=== PATIENT | male | born 1950 | race Caucasian/White ===

== ENCOUNTER 2017-02-26 13:10 | Observation (INO) | payer MEDICARE ==
--- NOTE | ~2017-02-26 | HP ---
History And Physical [place] [id number] [place]. [address] NAME: SHERIDAN JACOBSEN : 48 STATUS : ADM Fawad PAT#: [id number] AGE: 66 ADM/REG DATE : 02/26/17 MR#: [id number] REPORT SERV DATE: 02/27/17 DICTATED BY: ASHWINI SALOMON DATE: 02/27/17 REPORT STATUS : Draft TRANSCRIBED BY: MODRenetta DATE: 02/27/17 DATE OF ADMISSION: 02/26/2017 PRINT SHOP HELPER: Mars Carter M.D. GI PHYSICIAN: Dr. Medina. CHIEF COMPLAINT: Two to three days of chest pain similar to previous. HISTORY OF PRESENT ILLNESS: A very pleasant 66-year-old white gentleman with known history of CAD, status post KARLIE to mid LAD, 05/2011 with cath 05/2012 revealing a widely patent stent to his LAD with mild CAD otherwise. The patient states that for the last two to three days, he has experienced relatively persistent chest discomfort similar to his previous cardiac events. He describes it as some left-sided anterior chest pain, but also he describes some stomach "rumbling as well". He describes the discomfort as sharp in nature. He rates the chest pain of 4/10 at its most intense. At the time of interview in the [facility], he rates it as 1/10 after having received morphine. He also describes the chest pain as "persistent and aggravating". He describes associated nausea, dizziness, and belching. Denies shortness of breath or diaphoresis. The episode lasted hours in duration. He did take aspirin and possibly old nitroglycerin with some improvement in his symptoms. There seemingly no pattern with meals, although he does report some difficulty swallowing certain foods at times. The discomfort has been persistent. There seems to be no aggravating or exertional component described. He reports no change in his activity. The patient denies any personal history of myocardial infarction, stroke, DVT, or pulmonary embolus. The patient denies any recent fever or chills, no palpitations, no syncopal episodes. Denies PND or orthopnea. PAST MEDICAL HISTORY: 1. CAD;. a. 05/2011, KARLIE to the mid LAD. b. 05/2012, cath by Dr. Carter, widely patent stent to the LAD with mild CAD otherwise, EF 55% to 60%. 2. Hypertension. 3. Dyslipidemia. 4. AODM. 5. Depression. 6. Arthritis. 7. Forgetfulness. 8. Remote tobacco abuse. 9. Positive family history for early CAD. PAST SURGICAL HISTORY: 1. Cervical surgery. 2. Bilateral rotator cuff repair. 3. Bilateral carpal tunnel. History And Physical [address] [address] NAME: SHERIDAN JACOBSEN : [birth year] STATUS : ADM Fawad PAT#: [id number] AGE: 66 ADM/REG DATE : 02/26/17 MR#: [id number] REPORT SERV DATE: 02/27/17 DICTATED BY: ASHWINI SALOMON DATE: 02/27/17 REPORT STATUS : Draft TRANSCRIBED BY: JACKSON DATE: 02/27/17 4. Right total knee. 5. Tonsillectomy. 6. Multiple with a past history of MRSA. SOCIAL HISTORY: He is with two children. He is retired from sales. Does not have a structured exercise routine. Quit smoking twenty five years ago. Rarely consumes alcohol. Denies illicits. FAMILY HISTORY: Father with a heart attack at 63, at 65. Mother with a history of hypertension and Alzheimer's. Sister with atrial fibrillation. REVIEW OF SYSTEMS: A 14-point review of systems performed, significant for HPI including home blood sugars of 200 and recent hemoglobin A1c of 9.0, followed by PCP. Otherwise, complete review of systems obtained and negative. ALLERGIES: NO KNOWN DRUG ALLERGIES. HOME MEDICATIONS: Tylenol p.r.n., Norvasc 5 mg daily, atorvastatin 20 mg nightly, chlorthalidone 25 mg daily, clopidogrel 75 mg nightly, diclofenac 50 mg twice daily, stool softener 250 twice daily p.r.n., Cardura 4 mg daily, Trulicity 1.5 mg subcu weekly, Flonase p.r.n., units subcu twice daily, Humalog sliding scale, metformin 1000 mg twice daily, multivitamin daily, nitroglycerin p.r.n., ramipril 10 mg twice daily, hemp oil three times daily, and Effexor 75 mg daily. PHYSICAL EXAMINATION: VITAL SIGNS: Bilateral blood pressures on arrival, right 137/76, left 132/61, this morning 149/73, pulse 74, respirations 16, temperature 97.6, O2 saturation 96% on room air, height 6 feet 0 inches, weight 252 pounds, BMI 35.5. GENERAL: Cooperative, in no apparent distress. HEENT: Pupils 2 mm, sclera nonicteric. Nares patent. Moist mucous membranes. No xanthelasma. NECK: Trachea midline, no thyromegaly. No JVD. No bruits. LYMPH: No cervical lymphadenopathy. No supraclavicular lymphadenopathy. RESPIRATORY: Unlabored respirations. Breath sounds clear bilaterally to posterior auscultation. No wheezes or rhonchi. CARDIOVASCULAR: Regular rate. No murmur, rub or gallop appreciated. EXTREMITIES: Without edema. Pulses 2+ bilaterally. ABDOMEN: Soft, nontender, nondistended, normal bowel sounds auscultated throughout. obese and there is no organomegaly appreciated. SKIN: Warm, dry extremities. No pallor, or cyanosis. PSYCHIATRIC: Appropriate affect. Alert, oriented x3. LABORATORY DATA: Troponin less than 0.02 x3, potassium 4.5, BUN 17, creatinine 0.81, glucose 321, calcium 10.6, magnesium 2.1. Lipase 119. WBC 4.6, hemoglobin 15.1, hematocrit 44.5, platelet count 205,000. EKG, sinus rhythm with PACs. History And Physical [address] [address] NAME: SHERIDAN JACOBSEN : [birth year] STATUS : ADM Fawad PAT#: [id number] AGE: 66 ADM/REG DATE : 02/26/17 MR#: [id number] REPORT SERV DATE: 02/27/17 DICTATED BY: ASHWINI SALOMON DATE: 02/27/17 REPORT STATUS : Draft TRANSCRIBED BY: MODL DATE: 02/27/17 MPI, 05/2011, no ischemia. PCI, 05/2011, KALRIE to mid LAD. Cath 05/2012 (Carter): Stent to LAD, widely patent with mild CAD, otherwise EF 55% to 60%. ASSESSMENT AND PLAN: 1. Substernal chest pain with typical and atypical features in a patient with multiple risk factors including previous cardiac stent to LAD. The patient has been observed in the [facility] overnight to rule out myocardial infarction. Three sets of cardiac markers negative. EKG appears stable. The patient has been held n.p.o. We will proceed with MPI today. The patient will be discharged home if low risk, no ischemia. If anything suggestive of ischemia, Cardiology referral will be initiated. Otherwise, the patient will be asked to follow up with his PCP and assembler as appropriate. 2. Coronary artery disease. Continue home medications. 3. Abdominal "rumbling", Mylanta and Protonix. Recommend GI followup for complaints of dysphagia with certain foods. 4. Hypertension. Monitor blood pressure and continue home medications. 5. Dyslipidemia. Continue statin. 6. Adult-onset diabetes mellitus. Hold metformin, level 1 sliding scale correction. DELMI/MODL Ashwini Salomon, MSN, FIELD RECORDER-BC / [id number] CC: FREDA Reyes M.D. Van Stephen Monroe Jr., M.D.
[~2017-02-26 13:10] MED LIST: ACET500CAP PO; ALTACE10 MG PO; AMARYL4 PO; ASAB PO; CARDURA1 MG PO; DEXEDRINE10 MG OR; DEXEDRINE15 MG OR; DEXEDRINE5 M1 OR; ESKALITH PO; GLUCOPHAGE1000 MG PO; GLUCOPHXR PO; GLUCPH PO; INSNOVR SC; LEVEMIR SC; LITHOBID3 PO; MOBIC7.5 PO; MULTIPLE VIT PO; MULTIVITAMI1 PO; NORV5 PO; NOVOLOG SC; PLAVIX PO; PRILO PO; REM15 PO; RESTORIL30 MG PO; SEPTRA DS1 TAB PO; SEROQUEL300 MG PO; VALIUM10 MG PO; WELLBUTRIN200 MG PO; ZOCOR20 PO
[2017-02-26 14:32] LABS: BASOPHILS 0.4 %; BASOPHILS ABSOLUTE 0.02 10/3/uL (0.0-0.16); EOSINOPHILS 4.8 %; EOSINOPHILS ABSOLUTE 0.22 10/3/uL (0.0-0.53); ER CBC TAT 0 Hrs 07 Mins; HEMATOCRIT 44.5 % (40.0-51.0); HEMOGLOBIN 15.1 g/dL (13.6-17.8); IMMATURE GRANULOCYTES 0.2 %; IMMATURE GRANULOCYTES ABSOLUTE 0.01 10/3/uL (0.0-0.11); LYMPHOCYTES 24.1 %; LYMPHOCYTES ABSOLUTE 1.11 10/3/uL (0.67-4.30); MEAN CORPUS HGB CONC 33.9 g/dL (32.0-36.0); MEAN CORPUSCULAR HEMOGLOB 30.1 pg (26.0-34.0); MEAN PLATELET VOLUME 10.3 fL (9.2-13.0); MONOCYTES 3.9 %; MONOCYTES ABSOLUTE 0.18 10/3/uL (0.21-1.20); NEUTROPHILS 66.6 %; NEUTROPHILS ABSOLUTE 3.06 10/3/uL (2.02-8.40); PLATELET COUNT 205 10/3/uL (150-400); RBC DISTRIBUTION WIDTH 13.1 % (12.0-16.0); RED CELL COUNT 5.02 10/6/uL (4.7-6.1); WHITE BLOOD CELLS 4.6 10/3/uL (4.5-10.5)
[2017-02-26 14:33] LABS: MANUAL DIFF NO %; MEAN CORPUSCULAR VOLUME 88.6 fL (80-100)
[2017-02-26 14:47] LABS: BUN (BLOOD UREA NITROGEN) 17 MG/DL (6-23); CHEST PAIN PROFILE TAT 0 Hrs 22 Mins; CHLORIDE, SERUM 103 MMOL/L (96-112); CO2 (CARBON DIOXIDE) 31 MMOL/L (24-34); CREATININE 0.81 MG/DL (0.70-1.30); GFR AFRICAN AMERICAN 107 ML/MIN (>=60); GFR NON AFRICAN AMERICAN 92 ML/MIN (>=60); POTASSIUM, SERUM 4.5 MMOL/L (3.5-5.3); SODIUM, SERUM 141 MMOL/L (135-148); TROPONIN I <0.02 NG/ML (<0.05)
[2017-02-26 14:48] LABS: CALCIUM, SERUM 10.6 MG/DL (8.5-10.4); GLUCOSE, SERUM 321 MG/DL (60-99)
[2017-02-26 14:48] LABS: PARTIAL THROMBO TIME 24.7 SEC (22.5-37.2); PROTIME (NOT ORD) 12.8 SEC (12.0-14.5)
[2017-02-26 16:09] LABS: ALBUMIN 3.9 G/DL (3.5-5.0); ALKALINE PHOSPHATASE 78 U/L (45-117); DIRECT BILIRUBIN < 0.1 MG/DL (0.0-0.4); INDIRECT BILIRUBIN(NOT ORDER) 0.3 MG/DL (0.1-0.9); SGOT(AST) 17 U/L (5-40); SGPT(ALT) 29 U/L (5-65); TOTAL BILIRUBIN 0.4 MG/DL (0-1.2); TOTAL PROTEIN 7.1 G/DL (6.0-8.5)
[2017-02-26] MEDS ORDERED: GLUCOPHAGE1000 MG PO (17:50)
[2017-02-26] MEDS ORDERED: TOUJEO SC (17:51)
[2017-02-26] MEDS ORDERED: TRULICITY1.5 MG/0.5 SQ (17:52)
[2017-02-26] MEDS ORDERED: HUMALOG SC (17:52)
[2017-02-26] MEDS ORDERED: HYGROTON 25 MG25 MG PO (17:53)
[2017-02-26] MEDS ORDERED: ZIPSOR25 MG PO (17:53)
[2017-02-26] MEDS ORDERED: ALTACE10 MG PO (17:54)
[2017-02-26] MEDS ORDERED: CARDU4 PO (17:54)
[2017-02-26] MEDS ORDERED: NORV5 PO (17:54)
[2017-02-26] MEDS ORDERED: LIPITOR20 PO (17:55)
[2017-02-26] MEDS ORDERED: PLAVIX PO (17:56)
[2017-02-26] MEDS ORDERED: FLONASE NAS (17:56)
[2017-02-26] MEDS ORDERED: DOK250 MG PO (17:57)
[2017-02-26] MEDS ORDERED: MULTIVITAMI1 PO (17:57)
[2017-02-26] MEDS ORDERED: HEMP OIL PO (17:59)
[2017-02-26] MEDS ORDERED: EFFEXXR75 PO (17:59)
[2017-02-26] MEDS ORDERED: 8 HOUR650 MG PO (18:00)
[2017-02-26] MEDS ORDERED: NITROSTAT0.4 MG SL (18:01)
[2017-02-27] MEDS ORDERED: NITROSTAT0.4 MG SL (16:29)
[2017-02-27] MEDS ORDERED: PROTONIX PO (16:31)
== END 2017-02-27 16:52 | disposition home or self-care (01) ==
LOC: ER 13:10 → CDU1 18:17
PROVIDERS: Emergency Medicine
DX: R07.2 Precordial pain (principal); I25.10 Atherosclerotic heart disease of native coronary artery without angina pectoris; I10 Essential (primary) hypertension; E78.5 Hyperlipidemia, unspecified; E11.9 Type 2 diabetes mellitus without complications; F32.9 Major depressive disorder, single episode, unspecified; E78.00 Pure hypercholesterolemia, unspecified; K21.9 Gastro-esophageal reflux disease without esophagitis; M19.90 Unspecified osteoarthritis, unspecified site; Z90.89 Acquired absence of other organs; Z98.890 Other specified postprocedural states; Z87.891 Personal history of nicotine dependence; Z95.5 Presence of coronary angioplasty implant and graft; Z79.02 Long term (current) use of antithrombotics/antiplatelets; Z79.899 Other long term (current) drug therapy
CPT/HCPCS: 71020; 78452; 80048; 80076; 82962; 83690; 83735; 84484; 85025; 85610; 85730; 93005; 93017; 96374; 96375; 99285; A9270-GY; A9502; G0378